=== PATIENT | male | born 1975 | race Caucasian/White ===

== ENCOUNTER 2024-01-11 20:26 | Emergency (ER) | payer BC ==
[2024-01-11 20:33] VITALS: BP 104/74; PULSE 65; RESP 17; TEMP 98.2; BMI 22.8
[2024-01-11] MEDS ORDERED: DALBAVANCIN HCL 500 MG VIAL (RESTRICTED TO ID ONLY) IVPB ONE (21:26)
[2024-01-11 21:41] LABS: HEMATOCRIT 42.3 % (35.4-49); MCH 29.5 pg (25.7-33.7); MCHC 33.1 g/dl (32.0-35.9); MEAN CELL VOLUME 89.3 fl (80-96); MEAN PLT VOLUME 7.9 fl (7.5-11.1); PLATELET COUNT 203.9 10^3/uL (134-434); RBC 4.74 10^6/uL (4.00-5.60); RDW 14.4 % (11.9-15.9); WHITE BLOOD COUNT 9.5 10^3/uL (4.0-10.8)
[2024-01-11] MEDS: DALBAVANCIN HCL 1,500 MG in DEXTROSE 5%-WATER - 500 ML IVPB ONE (21:51)
[2024-01-11 21:59] LABS: ALBUMIN 4.7 g/dl (3.4-5.0); CALCIUM 9.5 mg/dl (8.5-10.1); POTASSIUM 4.2 mmol/L (3.5-5.1)
[2024-01-11 22:03] LABS: PLATELET ESTIMATE ADEQUATE
[2024-01-11 22:21] LABS: ERYTHROCYTE SEDIMENTATION RATE 7 mm/hr (0-10)
== END 2024-01-11 22:44 | disposition home or self-care (01) ==
LOC: FER 20:26
DX: L03.114 Cellulitis of left upper limb (principal); R21 Rash and other nonspecific skin eruption
CPT/HCPCS: 36415; 73070-TC-LT-FY; 80053; 85025; 85651; 86140; 99284-25; J0875